=== PATIENT | male | born 1990 | race Caucasian/White ===

== ENCOUNTER → 2017-02-05 | Outpatient (CLI) | payer BC | END | disposition home or self-care (01) | LOC: RAD 14:52 | DX: Z02.1 Encounter for pre-employment examination (principal); S82.92XD Unspecified fracture of left lower leg, subsequent encounter for closed fracture with routine healing; Z98.890 Other specified postprocedural states | CPT/HCPCS: 73590 ==

== ENCOUNTER → 2017-02-10 | Outpatient (CLI) | payer BC | END | disposition home or self-care (01) | LOC: RAD 14:12 | DX: Z02.1 Encounter for pre-employment examination (principal); S82.92XD Unspecified fracture of left lower leg, subsequent encounter for closed fracture with routine healing; Z98.890 Other specified postprocedural states | CPT/HCPCS: 73610; 73630 ==